=== PATIENT | male | born 1995 | race Caucasian/White ===

== ENCOUNTER 2021-05-23 11:09 | Emergency (ER) | payer SELFPAY ==
[~2021-05-23] VITALS: Ht 193 cm; Wt 109.0 kg
--- NOTE | 2021-05-23 11:17 | PHYS DOC ---
General Adult EDM: Chief Complaint: LACERATION/AVULSION HPI: HPI: Patient is a 25-year-old male presents emergency department concerning laceration to his right pinky finger. Patient reports he was carving a pumpkin approximately 30 minutes ago when knife went through pumpkin and stabbed his left pinky finger. Patient reports some bleeding, placed direct pressure on and bandaged and came to the emergency department for evaluation. Patient denies pain to the laceration site, denies numbness or tingling or loss of sensation to his hand or fingers. Reports his last tetanus immunization was less than 5 years ago. Reports history of type 1 diabetes, has insulin pump. Denies homic idal or suicidal ideation. Denies other physical complaints or physical concerns. Review of Systems: Review of Systems: 14 body systems of review of systems have been reviewed. See HPI for pertinent positives and negative responses, otherwise all other systems are negative, nonpertinent or noncontributory. Constitutional: Negative except as outlined in HPI above. Skin: Negative except as outlined in HPI above. Eyes: Negative except as outlined in HPI above. HENT: Negative except as outlined in HPI above. Respiratory: Negative except as outlined in HPI above. Cardiovascular: Negative except as outlined in HPI above. GI: Negative except as outlined in HPI above. : Negative except as outlined in HPI above. Musculoskeletal: Negative except as outlined in HPI above. Integument: Negative except as outlined in HPI above. Neurologic: Negative except as outlined in HPI above. Endocrine: Negative except as outlined in HPI above. Lymphatic: Negative except as outlined in HPI above. Psychiatric: Negative except as outlined in HPI above. Heart Score: C/O Chest Pain: No Risk Factors: Risk Factors: DM, Current or recent (<one month) smoker, HTN, HLP, family histo ry of CAD, obesity. Risk Scores: Score 0 - 3: 2.5% MACE over next 6 weeks - Discharge Home Score 4 - 6: 20.3% MACE over next 6 weeks - Admit for Clinical Observation Score 7 - 10: 72.7% MACE over next 6 weeks - Early Invasive Strategies Physical Exam: PE: Constitutional: Well developed, well nourished, no acute distress, non-toxic appearance. 25-year-old male in no apparent distress. HENT: Normocephalic, atraumatic. Eyes: Conjunctiva normal, no discharge. Neck: Normal range of motion, no stridor. Cardiovascular: No cyanosis appreciated, distal cap refill less than 2 seconds. Lungs & Thorax: Patient is in no respiratory distress, no audible adventitious lung sounds appreciated. Abdomen: Nontender, no abnormalities noted. Skin: Warm, dry, no erythema, no rash. See extremity note for focused skin examination and explanation of laceration. Back: No tenderness, no deformities. Extremities: No tenderness, no cyanosis, no clubbing, ROM intact, no edema. Except for right pinky finger palmar aspect has 1/2 cm laceration at MIP joint skin surface. No bleeding appreciated. No loss of sensation at or around or distal to laceration, distal cap refill less than 2 seconds, satisfactory extension, limited flexion, no pain elicited. No swelling or edema appreciated. No infectious process appreciated Neurologic: Alert and oriented X 3, normal motor function, normal sensory function, no focal deficits noted. Psychologic: Affect normal, judgement normal, mood normal. EKG: EKG: [] Radiology/Procedures: Radiology/Procedures: PATIENT: SD ALANIZ ACCOUNT: [id number] : 1995 LOCATION: ER AGE: 25 SEX: M EXAM STATUS: REG ER ORD. PHYSICIAN: YURY JERNIGAN APRN REASON: Puncture laceration right fifth digit MIP joint rule out foreign body PROCEDURE: HAND RIGHT 3V Right hand 3 views. HISTORY: Puncture laceration right fifth finger 3 views were taken of the right hand. There is not evidence of an acute fracture. There is no opaque foreign body. There is no acute osseous abnormality. IMPRESSION: 1. Negative right hand. Electronically signed by: Octavio Hernandez MD (05/23/2021 11:56 AM) [facility] Course & Med Decision Making: Course & Med Decision Making Pertinent Labs and Imaging studies reviewed. (See chart for details) 25-year-old male, vital signs reviewed, presents emergency department concerning laceration to right pinky finger while carving pumpkins approximately 30 minutes ago. Physical examination consistent with patient's explanation of events, concerning for flexor tendon involvement, will x-ray to rule out foreign body, consult with hand surgeon, see laceration repair note. X-ray negative for foreign body or other abnormality. Called and discussed patient case and emergency department work-up with [facility] hand surgeon Dr. Ward who recommended suture closure of laceration, place and ulnar gutter splint, prophylactically treat with Bactrim DS x7 days, ice and elevation, call office tomorrow morning to be seen Monday or Monday. Discussed with patient recommendations from hand surgeon Dr. Ward, patient gave verbal understanding of and is amenable to ED discharge planning. Dragon Disclaimer: Dragon Disclaimer: This electronic medical record was generated, in whole or in part, using a voice recognition dictation system. Laceration Repair Lac Repair Indication: laceration right pinky finger Time: 1310 Confirmed: Patient, procedure, side, and site correct. Consent: Patient, has given verbal consent. Description/repair Procedure: The patient was placed in the appropriate position and anesthesia around the laceration was achieved with 4 cc 1% lidocaine without epinephrine . The area was then cleansed with povidone iodine, vigorously irrigated with 1000 cc of normal saline. The laceration was explored for foreign bodies, there are no visual foreign bodies.. The laceration was closed with 3 interrupted sutures using 4-0 nylon the wound area was then dressed with bacitracin and Band-Aid, splinted with OCL splint and ulnar gutter physician. Complexity: Single layer. Post procedure exam: Circulation, motor, sensory examination intact, bleeding controlled. Total repaired wound length: 0.5 cm. Other Items: Patient remains neurovascular intact after splint placement. The patient tolerated the procedure well. Complications: Highly suspicious for tendon involvement. Performed by: Yury Streeter, PROJECT FINANCE ANALYST-C Supervision: Dr. Walker was present for consult regarding the critical aspects of the procedure including closure and post procedure exam. Total time: 10 minutes. Departure Departure Impression: Primary Impression: Finger laceration involving tendon Qualified Codes: S61.219A - Laceration without foreign body of unspecified finger without damage to nail, initial encounter Disposition: HOME / SELF CARE / HOMELESS Condition: GOOD Patient Instructions: Laceration Care, Adult Additional Instructions: You were seen today in the emergency department after laceration to your right pinky finger. As we discussed, there is a high suspicion of a tendon laceration. Your laceration was repaired with 3 nylon sutures that require removal in 7 to 10 days. The sutures will not dissolve on their own. An x-ray was performed today that did not show any broken bones or foreign bodies left at or around the laceration site. Because of this laceration is highly suspicious for a tendon laceration, I have spoken with a hand surgeon specialist Dr. Ward who recommends you be started on an antibiotic Bactrim twice a day for the next 7 days. I have prescribed this for you and sent the prescription to the pharmacy of your [facility] at [place], [place]. Please take as directed until complete. Please call Dr. Ward's office first thing this Monday morning for an appointment to be seen Monday or Monday. This appointment is a must for ongoing care of your hand injury. Your hand has been placed in a splint to prevent movement of this pinky finger. Please leave in place until otherwise told by Dr. Ward this Monday or Monday. Please follow his direction for ongoing suture site care. Return to the emergency department for worsening symptoms or other concerns. You may use [id number] Tylenol and or Motrin for pain or discomfort. Dr. Javier Ward MD [address] [place] [address], [facility] Area code [phone] Thank you for visiting our Emergency Department. It was a pleasure taking care of you today in the emergency department and we appreciate you trusting us with your care. If any additional problems come up don't hesitate to return to visit us. Please follow up with your primary care provider so they can plan additional care if needed and know about the problem that you had. If symptoms worsen come back to the Emergency Department. Any concerning symptoms that start such as chest pain, shortness of air, weakness or numbness on one side of the body, running high fevers or any other concerning symptoms return to the ER. EMERGENCY DEPARTMENT GENERAL DISCHARGE INSTRUCTIONS Thank you for coming to [facility] Emergency Department (ED) today and trusting us with you care. We trust that you had a positive experience in our Emergency Department. If you wish to speak to the department management, you may call the Director at [phone]. YOUR FOLLOW UP INSTRUCTIONS ARE FOLLOWS: 1. Do you have a private Doctor? If you do not have a private doctor, please ask for a resource list of physicians or clinics that may be able to assist you with follow up care. 2. The Emergency Physicain has interpreted your x-rays. The X-Ray specialist will also review them. If there is a change in the findings, you will be notified in 48 hours when at all possible. 3. A lab test or culture has been done, your results will be reviewed and you will be notified if you need a change in treatment. ADDITIONAL INSTRUCTIONS AND INFORMATION: 1. Your care today has been supervised by a physician who is specially trained in emergency care. Many problems require more than one evaluation for a complete diagnosis and treatment. We recommend that you schedule your follow up appointment as recommended to ensure complete treatment of you illness or injury. If you are unable to obtain follow up care and continue to have a problem, or if your condition worsens, we recommend that you return to the ED. 2. We are not able to safely determine your condition over the phone nor are we able to give sound medical advice over the phone. For these safety reasons, if you call for medical advice we will ask you to come to the ED for further evaluation. 3. If you have any questions regarding these discharge instructions please call the ED at [phone]. SAFETY INFORMATION: In the interest of safety, wellness, and injury prevention; we encourage you to wear your sealbelt, if you smoke; quite smoking, and we encourage family to use a protective helmet for bicycling and other sporting events that present an increased risk for head injury. IF YOUR SYMPTOMS WORSEN OR NEW SYMPTOMS DEVELOP, OR YOU HAVE CONCERNS ABOUT YOUR CONDITION; OR IF YOUR CONDITION WORSENS WHILE YOU ARE WAITING FOR YOUR FOLLOW UP APPOINTMENT; EITHER CONTACT YOUR PRIMARY CARE DOCTOR, THE PHYSICIAN WHOSE NAME AND NUMBER YOU WERE GIVEN, OR RETURN TO THE ED IMMEDIATELY. Scripts Sulfamethoxazole/Trimethoprim (BACTRIM DS TABLET) 1 Each Tablet 1 TAB PO BID for finger laceration for 7 Days, #14 TAB 0 Refills Prov: YURY JERNIGAN APRN 05/23/21 YURY JERNIGAN APRN May 23, 2021 11:17
--- NOTE | 2021-05-23 11:58 | RAD ---
Right hand 3 views. HISTORY: Puncture laceration right fifth finger 3 views were taken of the right hand. There is not evidence of an acute fracture. There is no opaque foreign body. There is no acute osseous abnormality. IMPRESSION: 1. Negative right hand. Electronically signed by: Octavio Hernandez MD (05/23/2021 11:56 AM) [facility]
[2021-05-23] MEDS ORDERED: LIDOCAINE 1% Multi-Dose 20 ML VIAL. INJ ONE (12:15)
[2021-05-23] MEDS ORDERED: SULF1TAB24 PO (13:45)
[2021-05-23] MEDS ORDERED: BACITRACIN TOPICAL OINT PACKET. TP ONE (13:45)
[2021-05-23 14:00] VITALS: BP 122/70
== END 2021-05-23 14:00 | disposition home or self-care (01) ==
LOC: ER 11:09
DX: S61.216A Laceration without foreign body of right little finger without damage to nail, initial encounter (principal); W26.0XXA Contact with knife, initial encounter; Y93.89 Activity, other specified; Y92.89 Other specified places as the place of occurrence of the external cause; Y99.8 Other external cause status
CPT/HCPCS: 12001; 73130; 99283; J3490